=== PATIENT | female | born 1935 | race Caucasian/White ===

== ENCOUNTER 2020-03-27 12:52 | Inpatient (IN) | payer MEDICARE, BC ==
[~2020-03-27] VITALS: Ht 162.6 cm; Wt 107.9 kg
[2020-03-27 13:37] LABS: BASOPHILS % (AUTO) 0.5 % (0-1); MEAN CORPUSCULAR VOLUME 89.2 FL (78-98); MONOCYTES # (AUTO) 0.6 X10'3 (0-0.9)
[2020-03-27 13:39] LABS: EOSINOPHILS # (AUTO) 0.1 X10'3 (0-0.9); EOSINOPHILS % (AUTO) 1.8 % (0-6); HEMATOCRIT 39.9 % (35.0-45.0); HEMOGLOBIN 12.8 g/dl (12.0-16.0); LYMPHOCYTES # (AUTO) 1.6 X10'3 (1.1-4.8); LYMPHOCYTES % (AUTO) 19.9 % (21-51); MEAN CORPUSCULAR HEMOGLOBIN 28.8 PG (27.0-31.0); MEAN CORPUSCULAR HGB CONC 32.2 g/dL (33.0-36.5); MEAN PLATELET VOLUME 11.8 FL (7.4-10.4); MONOCYTES % (AUTO) 7.3 % (2-12); NEUTROPHILS # (AUTO) 5.8 X10'3 (1.8-7.7); NEUTROPHILS % (AUTO) 70.5 % (42-75); PLATELET COUNT 116 X10'3 (140-440); RED BLOOD COUNT 4.47 X10'6 (4.20-5.60); RED CELL DISTRIBUTION WIDTH 15.4 % (11.5-14.5); WHITE BLOOD COUNT 8.2 X10'3 (4.5-11.0)
[2020-03-27] MEDS: ISOPROTERENOL IV SCH ×3 (13:44→21:30)
[2020-03-27] MEDS: NS IV SCH ×3 (13:44→21:30)
--- NOTE | 2020-03-27 13:48 | NUR ---
Daughter, Celia [phone]. Pt gives verbal consent to give her information.
[2020-03-27 13:51] LABS: ALANINE AMINOTRANSFERASE 49 U/L (12-78); ALBUMIN 3.5 G/DL (3.4-5.0); ALKALINE PHOSPHATASE 69 IU/L (46-116); ANION GAP 4 (8-16); ASPARTATE AMINO TRANSFERASE 25 U/L (10-37); BILIRUBIN,TOTAL 0.3 MG/DL (0.1-1.0); BLOOD UREA NITROGEN 43 MG/DL (7-18); BUN/CREATININE RATIO 27.7 (6.6-38.0); CALCIUM 9.4 MG/DL (8.5-10.1); CHLORIDE 101 MMOL/L (99-107); CREATININE 1.55 MG/DL (0.40-0.90); GLUCOSE 200 MG/DL (70-104); POTASSIUM 5.9 MMOL/L (3.5-5.1); SODIUM 138 MMOL/L (135-145); TOTAL CARBON DIOXIDE 32.9 MMOL/L (24-32); TOTAL PROTEIN 7.1 G/DL (6.4-8.2); eGFR 32 ML/MIN
[2020-03-27 13:57] LABS: MAGNESIUM 1.8 MG/DL (1.5-2.4)
[2020-03-27 14:08] LABS: GIANT PLATELET FEW; PLATELET ESTIMATE DECREASED
[2020-03-27 14:09] LABS: LARGE PLATELETS FEW
[2020-03-27] MEDS ORDERED: potassium Cl 20 mEq SR tablet PO PRN ×2 (14:30)
[2020-03-27] MEDS ORDERED: potassium Cl 40MEQ/250ML bag 270 ML IV PRN ×2 (14:30)
[2020-03-27] MEDS ORDERED: magnesium hydroxide 30ml (MOM) UD suspension PO PRN (14:30)
[2020-03-27] MEDS ORDERED: acetaminophen 325mg tablet PO PRN (14:30)
[2020-03-27] MEDS ORDERED: potassium Cl 40MEQ/1/2NS 520ml 520 ML IV PRN ×2 (14:30)
[2020-03-27] MEDS ORDERED: morphine 4 MG/ML inj SYRINge IV PRN (14:30)
[2020-03-27] MEDS ORDERED: morphine 2 MG/ML inj. syringe IV PRN (14:30)
[2020-03-27] MEDS ORDERED: MONT10TA32 PO (14:55)
[2020-03-27] MEDS ORDERED: CARV6.2553 PO (14:55)
[2020-03-27] MEDS ORDERED: ROW500R RC (14:55)
[2020-03-27] MEDS ORDERED: LEVO112T5 PO (14:55)
[2020-03-27] MEDS ORDERED: IPRA3AMP31 IH (14:55)
[2020-03-27] MEDS ORDERED: METF-950 PO (14:55)
[2020-03-27] MEDS ORDERED: ATOR10TA70 PO (14:55)
[2020-03-27] MEDS ORDERED: GABA600T13 PO (14:55)
[2020-03-27] MEDS ORDERED: POTA10CA44 PO (14:55)
[2020-03-27] MEDS ORDERED: ASPI-611 PO (14:55)
[2020-03-27] MEDS ORDERED: OLME20TA23 PO (14:55)
[2020-03-27] MEDS ORDERED: FURO20TA4 PO (14:56)
[2020-03-27] MEDS ORDERED: ACET-1 PO (14:56)
[2020-03-27] MEDS ORDERED: LIDOcaine 1% 30ml preserv. free vial IJ ONE (18:10)
--- NOTE | 2020-03-27 18:53 | NUR ---
ROOM ASSIGNMENT 2009A,REPORT HAS BEEN CALLED BY RN GLORIA. DAUGHTER PAT AT BEDSIDE.
[2020-03-27 19:15] VITALS: BP 135/32
--- NOTE | 2020-03-27 19:30 | NUR ---
Patient in room CICU 2006. I have received report from Joy PABLO and had the opportunity to ask questions and assume patient care. pt arrived to room via gurmiryam from ED accompanied by Yuli PABLO
[2020-03-27] MEDS: normal saline 1000ml 1,000 ML IV SCH (19:39)
[2020-03-27 20:00] VITALS: BP 103/31
[2020-03-27] MEDS: ipratropium/albuterol 3ml nebule IH SCH (20:26)
[2020-03-27 20:53] LABS: OXYGEN SATURATION (MIXED VEN) 65.5 % (60-80); PO2 MIXED VENOUS (TEMP COR) 32.5 mmHg (35-46)
[2020-03-27 21:00] VITALS: BP 126/27
[2020-03-27] MEDS: K, MAG and/or Phos replacement - Verify level? MC SCH (21:15)
[2020-03-27] MEDS: mesalamine 1000mg rectal suppository RC SCH (21:18)
[2020-03-27] MEDS: atorvastatin 10mg tablet PO SCH (21:30)
[2020-03-27] MEDS: DOPamine 400mg/D5W 250ml 250 ML IV PRN (21:30)
[2020-03-27] MEDS: gabapentin 300mg capsule PO SCH (21:31)
[2020-03-27] MEDS: montelukast 10mg tablet PO SCH (21:31)
[2020-03-27] MEDS: ondansetron/PF 4mg/2ml inj IV PRN (21:55)
[2020-03-27] MEDS: levoTHYROXINE 112mcg tablet PO SCH (21:58)
[2020-03-27 22:00] VITALS: BP 123/21
[2020-03-27 23:00] VITALS: BP 99/48
[2020-03-28] VITALS (26 sets, daily range): BP systolic 77–151; BP diastolic 26–71
[2020-03-28] MEDS: ISOPROTERENOL IV SCH ×3 (00:34→09:22)
[2020-03-28] MEDS: NS IV SCH ×3 (00:34→09:22)
[2020-03-28 03:48] LABS: BASOPHILS # (AUTO) 0.1 X10'3 (0-0.2); BASOPHILS % (AUTO) 0.3 % (0-1); EOSINOPHILS % (AUTO) 0.2 % (0-6); HEMATOCRIT 37.4 % (35.0-45.0); HEMOGLOBIN 11.9 g/dl (12.0-16.0); LYMPHOCYTES # (AUTO) 1.8 X10'3 (1.1-4.8); LYMPHOCYTES % (AUTO) 11.3 % (21-51); MEAN CORPUSCULAR HEMOGLOBIN 28.5 PG (27.0-31.0); MEAN CORPUSCULAR HGB CONC 31.9 g/dL (33.0-36.5); MEAN CORPUSCULAR VOLUME 89.2 FL (78-98); MEAN PLATELET VOLUME 12.3 FL (7.4-10.4); MONOCYTES # (AUTO) 1.5 X10'3 (0-0.9); MONOCYTES % (AUTO) 9.6 % (2-12); NEUTROPHILS # (AUTO) 12.5 X10'3 (1.8-7.7); NEUTROPHILS % (AUTO) 78.6 % (42-75); PLATELET COUNT 124 X10'3 (140-440); RED BLOOD COUNT 4.19 X10'6 (4.20-5.60); RED CELL DISTRIBUTION WIDTH 15.6 % (11.5-14.5)
[2020-03-28 04:03] LABS: ALBUMIN 3.3 G/DL (3.4-5.0); ANION GAP 6 (8-16); BLOOD UREA NITROGEN 44 MG/DL (7-18); BUN/CREATININE RATIO 22.9 (6.6-38.0); CALCIUM 8.1 MG/DL (8.5-10.1); CHLORIDE 102 MMOL/L (99-107); CREATININE 1.92 MG/DL (0.40-0.90); GLUCOSE 252 MG/DL (70-104); MAGNESIUM 1.5 MG/DL (1.5-2.4); POTASSIUM 5.7 MMOL/L (3.5-5.1); SODIUM 137 MMOL/L (135-145); TOTAL CARBON DIOXIDE 28.7 MMOL/L (24-32); eGFR 25 ML/MIN
[2020-03-28] MEDS: ondansetron/PF 4mg/2ml inj IV PRN (04:55)
[2020-03-28 05:16] LABS: LARGE PLATELETS FEW; PLATELET ESTIMATE DECREASED
[2020-03-28 05:17] LABS: STOMATOCYTES 1+
[2020-03-28] MEDS: DOPamine 400mg/D5W 250ml 250 ML IV PRN ×3 (06:01→15:14)
--- NOTE | 2020-03-28 06:49 | NUR ---
Problems reprioritized. Patient report given, questions answered & plan of care reviewed with Joy PABLO.
[2020-03-28] MEDS: normal saline 1000ml 1,000 ML IV SCH ×4 (06:55→20:53)
[2020-03-28] MEDS: ipratropium/albuterol 3ml nebule IH SCH ×2 (07:53→20:45)
[2020-03-28] MEDS: mesalamine 1000mg rectal suppository RC SCH ×2 (08:00→20:00)
[2020-03-28] MEDS: K, MAG and/or Phos replacement - Verify level? MC SCH (08:00)
--- NOTE | 2020-03-28 08:02 | NUR ---
I have reviewed and agree with all medications administered and interventions performed by [facility] Student(Linnette Guerrero) Addendum: 03/28/20 at 0803 by Claribel Saucedo RT Amended: Links added.
[2020-03-28] MEDS ORDERED: normal saline 1000ml 1,000 ML IV ONE (08:55)
[2020-03-28] MEDS ORDERED: normal saline 1000ml 1,000 ML IV SCH (09:10)
[2020-03-28] MEDS: aspirin 81mg tablet.DR PO SCH (09:22)
[2020-03-28] MEDS: gabapentin 300mg capsule PO SCH (09:23)
[2020-03-28] MEDS ORDERED: MESSAGE TO PHARMACY PO ONE (09:55)
[2020-03-28] MEDS ORDERED: glucagon, human recombinant 1mg kit SUBCUT PRN (09:55)
[2020-03-28] MEDS ORDERED: dextrose 50%-water 50ml dispensing syringe IV PRN ×2 (09:55)
[2020-03-28] MEDS ORDERED: dextrose ORAL solution 15 GM/59 ML bottle PO PRN ×2 (09:55)
[2020-03-28] MEDS: insulin Lispro (HumaLOG) vial - multi-dose SQ SCH ×2 (13:23→21:20)
[2020-03-28 14:21] LABS: CLARITY,URINE CLOUDY (Clear); COLOR,URINE YELLOW (Yellow); GLUCOSE, URINE NEGATIVE (Neg); KETONES,URINE NEGATIVE (Neg); LEUKOCYTE ESTERASE ,URINE NEGATIVE (Neg); NITRITES, URINE NEGATIVE (Neg); OCCULT BLOOD,URINE LARGE (Neg); PROTEIN,URINE 100 mg/dl (Neg)
[2020-03-28 14:31] LABS: UA COLLECTION TYPE NON-SPECIFIED
[2020-03-28 14:36] LABS: MUCUS STRANDS FEW /LPF (Neg); SQUAMOUS EPITHELIAL CELL,UR MODERATE /LPF (FEW); TRANSITIONAL EPI CELLS,URINE MODERATE /HPF
[2020-03-28 14:38] LABS: RENAL CELLS, URINE MODERATE /HPF
[2020-03-28 14:40] LABS: BACTERIA,URINE 3+ /HPF (Neg); CAL OXALATE CRYSTALS 1+ /HPF (NEGATIVE); RBC,URINE 50-100 /HPF (0-2)
[2020-03-28] MEDS ORDERED: ceFAZolin 2gm in dextrose, iso 50 ML IV ONE (15:00)
[2020-03-28] MEDS ORDERED: LIDOcaine 1% W/epiNEPHrine 1:100,000 20ml vial ONE (15:01)
[2020-03-28] MEDS ORDERED: ceFAZolin 1000mg inj ONE (15:01)
[2020-03-28] MEDS ORDERED: midazolam 2 mg/2 ml injection ONE (15:01)
[2020-03-28] MEDS ORDERED: fentaNYL/PF 50MCG/1 ML 2ML syringe ONE (15:01)
[2020-03-28] MEDS ORDERED: phenylephrine 10mg/ml inj. ONE (16:42)
--- NOTE | 2020-03-28 16:50 | NUR ---
PT left for earth science laboratory technician at 1530 returned at 1650. Report received. RN reported that PT had a run of VF/SVT as they were moving her from earth science laboratory technician table to [facility]. PT is on a non rebreather, HR is in the 120's to 140's.100% paced. BP is high and Dopamine is running at 20mcgs. Titrated down and eventually off. VS stabilizing. PT is not waking but is moving a little. Urine OP looks good. Will continue to monitor.
[2020-03-28 17:38] LABS: ABG BASE EXCESS -7.2 mmol/L (-2.0-2.0); ABG PCO2 (T) 109.7 mmHg (32.0-45.0); FCOHb 0.6 % (0.0-3.9); FLOW 15 L/min; FMetHb 0.4 % (0.0-1.5); PATIENT TEMPERATURE 35.7; TOTAL HEMOGLOBIN 13.1 G/dl (12.0-16.0)
[2020-03-28] MEDS ORDERED: NORepinephrine 8mg/ 250ml NS 250 ML IV ONE (18:05)
[2020-03-28] MEDS: NORepinephrine 8mg/ 250ml NS 250 ML IV SCH (18:17)
--- NOTE | 2020-03-28 18:30 | NUR ---
Patient in room CICU 2006. I have received report from CHERYL PABLO and had the opportunity to ask questions and assume patient care.
[2020-03-28 18:47] LABS: HEMOGLOBIN A1C 7.4 % (4.5-6.2)
[2020-03-28 19:20] LABS: ABG BASE EXCESS -7.7 mmol/L (-2.0-2.0); ABG HCO3 23.5 mmol/L (22.0-26.0); ABG OXYGEN SATURATION 94.2 % (94-97); ABG PCO2 (T) 75.2 mmHg (32.0-45.0); ABG PO2 (T) 70.3 mmHg (75.0-100.0); FCOHb 0.7 % (0.0-3.9); FMetHb 0.3 % (0.0-1.5); FO2Hb 93.3 % (94-97); TOTAL HEMOGLOBIN 13.1 G/dl (12.0-16.0)
[2020-03-28 20:00] LABS: ALBUMIN 2.9 G/DL (3.4-5.0); ANION GAP 4 (8-16); BLOOD UREA NITROGEN 44 MG/DL (7-18); CALCIUM 7.7 MG/DL (8.5-10.1); CHLORIDE 103 MMOL/L (99-107); GLUCOSE 200 MG/DL (70-104); SODIUM 135 MMOL/L (135-145); TOTAL CARBON DIOXIDE 28.2 MMOL/L (24-32); eGFR 24 ML/MIN
[2020-03-28 20:04] LABS: POTASSIUM 7.3 MMOL/L (3.5-5.1)
[2020-03-28] MEDS ORDERED: furosemide 40mg/4ml inj IV ONE (20:10)
[2020-03-28] MEDS ORDERED: sodium bicarbonate (8.4%) 1 mEq/ml syringe IV ONE (20:10)
[2020-03-28] MEDS ORDERED: dextrose 50%-water 50ml dispensing syringe IV ONE (20:10)
[2020-03-28] MEDS ORDERED: insulin regular, human 10 units/0.1 ml syringe IV ONE (20:10)
[2020-03-28] MEDS ORDERED: calcium chloride 100 MG/1 ML inj IV ONE (20:10)
[2020-03-28] MEDS ORDERED: albuterol 2.5 MG/3 ML nebule NEB ONE ×2 (20:20→23:00)
[2020-03-28] MEDS: NYSTATIN CREAM - 30GM TUBE TP SCH (20:52)
[2020-03-28] MEDS: levoTHYROXINE 112mcg tablet PO SCH (21:00)
[2020-03-28] MEDS: montelukast 10mg tablet PO SCH (21:00)
[2020-03-28] MEDS: atorvastatin 10mg tablet PO SCH (21:00)
[2020-03-28] MEDS: insulin glargine (Lantus) pen - multi-dose SQ SCH (21:21)
[2020-03-28 22:29] LABS: ABG BASE EXCESS -4.8 mmol/L (-2.0-2.0); ABG HCO3 24.9 mmol/L (22.0-26.0); ABG OXYGEN SATURATION 94.2 % (94-97); ABG PCO2 (T) 67.8 mmHg (32.0-45.0); ABG PO2 (T) 69.6 mmHg (75.0-100.0); FCOHb 0.6 % (0.0-3.9); FMetHb 0.1 % (0.0-1.5); FO2Hb 93.5 % (94-97); PATIENT TEMPERATURE 36.3; RESPIRATORY RATE 20 b/min; TOTAL HEMOGLOBIN 12.2 G/dl (12.0-16.0)
[2020-03-28 22:44] LABS: ALBUMIN 2.7 G/DL (3.4-5.0); ANION GAP 3 (8-16); BLOOD UREA NITROGEN 42 MG/DL (7-18); BUN/CREATININE RATIO 23.6 (6.6-38.0); CALCIUM 8.3 MG/DL (8.5-10.1); CHLORIDE 104 MMOL/L (99-107); CREATININE 1.78 MG/DL (0.40-0.90); GLUCOSE 181 MG/DL (70-104); SODIUM 136 MMOL/L (135-145); TOTAL CARBON DIOXIDE 29.5 MMOL/L (24-32); eGFR 27 ML/MIN
[2020-03-28 22:47] LABS: POTASSIUM 6.4 MMOL/L (3.5-5.1)
[2020-03-28] MEDS ORDERED: methylPREDNISolone sod succ 125mg/2ml vial IV ONE (23:05)
[2020-03-29] VITALS (24 sets, daily range): BP systolic 100–136; BP diastolic 41–65
[2020-03-29] MEDS: insulin Lispro (HumaLOG) vial - multi-dose SQ SCH ×5 (01:18→18:40)
[2020-03-29 03:14] LABS: ABG BASE EXCESS -4.4 mmol/L (-2.0-2.0); ABG OXYGEN SATURATION 95.1 % (94-97); ABG PCO2 (T) 58.5 mmHg (32.0-45.0); ABG PO2 (T) 74.9 mmHg (75.0-100.0); FCOHb 0.8 % (0.0-3.9); FMetHb 0.2 % (0.0-1.5); FO2Hb 94.1 % (94-97); PATIENT TEMPERATURE 36.6; RESPIRATORY RATE 22 b/min; TOTAL HEMOGLOBIN 12.5 G/dl (12.0-16.0)
[2020-03-29 03:22] LABS: BASOPHILS % (AUTO) 0.2 % (0-1); EOSINOPHILS % (AUTO) 0 % (0-6); HEMATOCRIT 36.3 % (35.0-45.0); HEMOGLOBIN 11.5 g/dl (12.0-16.0); LYMPHOCYTES # (AUTO) 0.6 X10'3 (1.1-4.8); LYMPHOCYTES % (AUTO) 4.5 % (21-51); MEAN CORPUSCULAR HEMOGLOBIN 28.4 PG (27.0-31.0); MEAN CORPUSCULAR HGB CONC 31.7 g/dL (33.0-36.5); MEAN CORPUSCULAR VOLUME 89.7 FL (78-98); MEAN PLATELET VOLUME 11.7 FL (7.4-10.4); MONOCYTES # (AUTO) 0.5 X10'3 (0-0.9); MONOCYTES % (AUTO) 3.8 % (2-12); NEUTROPHILS % (AUTO) 91.5 % (42-75); PLATELET COUNT 100 X10'3 (140-440); RED BLOOD COUNT 4.04 X10'6 (4.20-5.60); RED CELL DISTRIBUTION WIDTH 15.1 % (11.5-14.5); WHITE BLOOD COUNT 13.1 X10'3 (4.5-11.0)
[2020-03-29 03:31] LABS: ALANINE AMINOTRANSFERASE 35 U/L (12-78); ALBUMIN 2.8 G/DL (3.4-5.0); ALBUMIN/GLOBULIN RATIO 0.8 (1.1-1.5); ALKALINE PHOSPHATASE 55 IU/L (46-116); ANION GAP 6 (8-16); ASPARTATE AMINO TRANSFERASE 19 U/L (10-37); BILIRUBIN,TOTAL 0.8 MG/DL (0.1-1.0); BLOOD UREA NITROGEN 38 MG/DL (7-18); BUN/CREATININE RATIO 26.2 (6.6-38.0); CALCIUM 8.5 MG/DL (8.5-10.1); CHLORIDE 104 MMOL/L (99-107); CREATININE 1.45 MG/DL (0.40-0.90); GLUCOSE 213 MG/DL (70-104); MAGNESIUM 1.4 MG/DL (1.5-2.4); PHOSPHORUS 3.4 MG/DL (2.3-4.5); SODIUM 138 MMOL/L (135-145); TOTAL CARBON DIOXIDE 28.3 MMOL/L (24-32); TOTAL PROTEIN 6.5 G/DL (6.4-8.2); eGFR 34 ML/MIN
[2020-03-29 03:36] LABS: POTASSIUM 6.2 MMOL/L (3.5-5.1)
[2020-03-29] MEDS: NORepinephrine 8mg/ 250ml NS 250 ML IV SCH ×2 (06:06→17:47)
--- NOTE | 2020-03-29 06:45 | NUR ---
Problems reprioritized. Patient report given, questions answered & plan of care reviewed with NICK PABLO.
[2020-03-29] MEDS: K, MAG and/or Phos replacement - Verify level? MC SCH (07:51)
[2020-03-29] MEDS: mesalamine 1000mg rectal suppository RC SCH (08:00)
[2020-03-29] MEDS: gabapentin 300mg capsule PO SCH (08:14)
[2020-03-29] MEDS: aspirin 81mg tablet.DR PO SCH (08:14)
[2020-03-29] MEDS: NYSTATIN CREAM - 30GM TUBE TP SCH ×2 (08:51→21:26)
[2020-03-29] MEDS: ipratropium/albuterol 3ml nebule IH SCH ×2 (08:58→19:46)
[2020-03-29] MEDS: acetaminophen 325mg tablet PO PRN ×2 (09:35→18:14)
--- NOTE | 2020-03-29 11:08 | NUR ---
DM consult: Pt with A1c 7.4%, DM education not warranted at this time given well controlled for geriatric age. Will continue to follow. Addendum: 03/29/20 at [address] Amended: Links added.
[2020-03-29] MEDS ORDERED: mesalamine 1000mg rectal suppository RC SCH (11:36)
[2020-03-29] MEDS ORDERED: UMEC1DIS IH (12:45)
[2020-03-29] MEDS ORDERED: albuterol 2.5 MG/3 ML nebule NEB SCH (14:00)
[2020-03-29] MEDS ORDERED: HYDROcodone/acetaminophen 5mg/325mg tablet PO PRN (14:50)
[2020-03-29] MEDS ORDERED: magnesium 2GM in 50ml NS 50 ML IV PRN (15:45)
[2020-03-29] MEDS ORDERED: magnesium 4gm in 100ml NS 100 ML IV PRN (15:45)
[2020-03-29] MEDS ORDERED: magnesium 2GM in 50ml NS 50 ML IV ONE (15:45)
[2020-03-29] MEDS ORDERED: magnesium Cl slow-release 64mg tablet PO PRN (15:45)
[2020-03-29] MEDS: ceFAZolin/D5W- 1GM premix 50 ML IV SCH ×2 (16:03→23:49)
[2020-03-29] MEDS ORDERED: sodium bicarbonate (8.4%) 1 mEq/ml syringe IV ONE (17:05)
[2020-03-29] MEDS ORDERED: dextrose 50%-water 50ml dispensing syringe IV ONE (17:05)
[2020-03-29] MEDS ORDERED: CALCIUM GLUC 1gm/50ml NACL,iso 50 ML IV SCH (17:05)
[2020-03-29] MEDS ORDERED: sodium polystyrene sulfonate 15gm/60ml oral suspension PO ONE (17:05)
[2020-03-29] MEDS ORDERED: insulin regular, human 10 units/0.1 ml syringe IV ONE (17:05)
[2020-03-29] MEDS ORDERED: calcium chloride 100 MG/1 ML inj IV ONE (17:05)
--- NOTE | 2020-03-29 18:30 | NUR ---
Patient in room CICU 2006. I have received report from NICK PABLO and had the opportunity to ask questions and assume patient care.
[2020-03-29 18:38] LABS: ALBUMIN 2.7 G/DL (3.4-5.0); ANION GAP 3 (8-16); BLOOD UREA NITROGEN 31 MG/DL (7-18); CALCIUM 8.6 MG/DL (8.5-10.1); CHLORIDE 105 MMOL/L (99-107); CREATININE 1.07 MG/DL (0.40-0.90); GLUCOSE 132 MG/DL (70-104); POTASSIUM 5.5 MMOL/L (3.5-5.1); SODIUM 139 MMOL/L (135-145); TOTAL CARBON DIOXIDE 30.6 MMOL/L (24-32); eGFR 49 ML/MIN
[2020-03-29] MEDS: budesonide 0.5mg/2ml UD nebule IH SCH (19:46)
[2020-03-29] MEDS: atorvastatin 10mg tablet PO SCH (21:24)
[2020-03-29] MEDS: normal saline 1000ml 1,000 ML IV SCH (21:24)
[2020-03-29] MEDS: metoprolol tartrate 25mg tablet PO SCH (21:25)
[2020-03-29] MEDS: montelukast 10mg tablet PO SCH (21:26)
[2020-03-29] MEDS: levoTHYROXINE 112mcg tablet PO SCH (21:26)
[2020-03-29] MEDS: insulin glargine (Lantus) pen - multi-dose SQ SCH (21:29)
[2020-03-30] VITALS (18 sets, daily range): BP systolic 108–143; BP diastolic 47–69
[2020-03-30] MEDS: insulin Lispro (HumaLOG) vial - multi-dose SQ SCH ×4 (02:00→20:00)
[2020-03-30 02:38] LABS: BASOPHILS % (AUTO) 0.1 % (0-1); EOSINOPHILS % (AUTO) 0.1 % (0-6); HEMATOCRIT 32.5 % (35.0-45.0); HEMOGLOBIN 10.6 g/dl (12.0-16.0); LYMPHOCYTES # (AUTO) 0.6 X10'3 (1.1-4.8); LYMPHOCYTES % (AUTO) 7.2 % (21-51); MEAN CORPUSCULAR HEMOGLOBIN 28.9 PG (27.0-31.0); MEAN CORPUSCULAR HGB CONC 32.5 g/dL (33.0-36.5); MEAN PLATELET VOLUME 11.3 FL (7.4-10.4); MONOCYTES # (AUTO) 0.8 X10'3 (0-0.9); MONOCYTES % (AUTO) 8.6 % (2-12); NEUTROPHILS # (AUTO) 7.4 X10'3 (1.8-7.7); PLATELET COUNT 80 X10'3 (140-440); RED BLOOD COUNT 3.65 X10'6 (4.20-5.60); RED CELL DISTRIBUTION WIDTH 15.2 % (11.5-14.5); WHITE BLOOD COUNT 8.9 X10'3 (4.5-11.0)
[2020-03-30 02:49] LABS: ALBUMIN 2.6 G/DL (3.4-5.0); ANION GAP 4 (8-16); BLOOD UREA NITROGEN 29 MG/DL (7-18); BUN/CREATININE RATIO 29.9 (6.6-38.0); CALCIUM 8.6 MG/DL (8.5-10.1); CHLORIDE 105 MMOL/L (99-107); CREATININE 0.97 MG/DL (0.40-0.90); GLUCOSE 166 MG/DL (70-104); POTASSIUM 5.3 MMOL/L (3.5-5.1); PREALBUMIN 15.3 MG/DL (19-36); SODIUM 138 MMOL/L (135-145); eGFR 55 ML/MIN
[2020-03-30] MEDS: ondansetron/PF 4mg/2ml inj IV PRN (04:14)
[2020-03-30] MEDS: HYDROcodone/acetaminophen 10/325mg tab PO PRN ×2 (04:15→16:28)
--- NOTE | 2020-03-30 06:31 | NUR ---
Problems reprioritized. Patient report given, questions answered & plan of care reviewed with Cesar PABLO.
[2020-03-30] MEDS: metoprolol tartrate 25mg tablet PO SCH ×2 (07:55→20:26)
[2020-03-30] MEDS: gabapentin 300mg capsule PO SCH (07:55)
[2020-03-30] MEDS: NYSTATIN CREAM - 30GM TUBE TP SCH ×2 (07:56→20:00)
[2020-03-30] MEDS: ceFAZolin/D5W- 1GM premix 50 ML IV SCH (07:56)
[2020-03-30] MEDS: aspirin 81mg tablet.DR PO SCH (07:56)
[2020-03-30] MEDS: K, MAG and/or Phos replacement - Verify level? MC SCH (08:00)
[2020-03-30] MEDS: ipratropium/albuterol 3ml nebule IH SCH ×2 (08:01→20:02)
[2020-03-30] MEDS: budesonide 0.5mg/2ml UD nebule IH SCH ×2 (08:01→20:02)
[2020-03-30] MEDS: mesalamine 1000mg rectal suppository RC SCH ×2 (09:03→20:26)
--- NOTE | 2020-03-30 14:39 | NUR ---
lauren and PUSHPA discontinue per verbal order by chemotherapist Dr. Rodriguez
--- NOTE | 2020-03-30 16:00 | NUR ---
SBAR report given to government program managernesha ace reviewed, questions answered. Addendum: 03/30/20 at 1602 by Cesar Pena RN patient transferred at 1600, vitals wnl, in no distress, connected to telemetry during transfer.
[2020-03-30] MEDS: cefepime 1GM/NS 100 ML IVPB IV SCH (17:30)
--- NOTE | 2020-03-30 18:47 | NUR ---
Patient in room PCU 3027. I have received report from Mahsa PABLO and had the opportunity to ask questions and assume patient care.
[2020-03-30] MEDS: atorvastatin 10mg tablet PO SCH (20:25)
[2020-03-30] MEDS: montelukast 10mg tablet PO SCH (20:25)
[2020-03-30] MEDS: levoTHYROXINE 112mcg tablet PO SCH (20:25)
[2020-03-30] MEDS: insulin glargine (Lantus) pen - multi-dose SQ SCH (20:48)
[2020-03-31 02:00] VITALS: BP 129/49
[2020-03-31 06:00] VITALS: BP 168/84
--- NOTE | 2020-03-31 06:27 | NUR ---
Problems reprioritized. Patient report given, questions answered & plan of care reviewed with Sharon PABLO.
--- NOTE | 2020-03-31 06:43 | NUR ---
Patient in room PCU 3027. I have received report from Iván PABLO and had the opportunity to ask questions and assume patient care.
[2020-03-31] MEDS: ipratropium/albuterol 3ml nebule IH SCH (07:07)
[2020-03-31] MEDS: budesonide 0.5mg/2ml UD nebule IH SCH (07:07)
--- NOTE | 2020-03-31 07:48 | NUR ---
Paged Dr. Almendarez regarding labs. PAGER ID: [phone] MESSAGE: [phone] Davi Rosas. Do we want to order labs? Thank you. [facility] [phone]
[2020-03-31] MEDS: cefepime 1GM/NS 100 ML IVPB IV SCH ×2 (07:50→19:47)
[2020-03-31] MEDS: gabapentin 300mg capsule PO SCH (07:50)
[2020-03-31] MEDS: aspirin 81mg tablet.DR PO SCH (07:50)
[2020-03-31] MEDS: metoprolol tartrate 25mg tablet PO SCH ×2 (07:51→20:00)
[2020-03-31] MEDS: K, MAG and/or Phos replacement - Verify level? MC SCH (08:00)
[2020-03-31] MEDS: mesalamine 1000mg rectal suppository RC SCH ×2 (08:00→20:00)
[2020-03-31] MEDS: NYSTATIN CREAM - 30GM TUBE TP SCH ×2 (08:00→20:00)
[2020-03-31] MEDS: insulin Lispro (HumaLOG) vial - multi-dose SQ SCH ×3 (08:56→22:13)
[2020-03-31 11:00] VITALS: BP 148/78
[2020-03-31 12:18] LABS: BASOPHILS % (AUTO) 0.4 % (0-1); EOSINOPHILS % (AUTO) 0.3 % (0-6); HEMATOCRIT 33.6 % (35.0-45.0); LYMPHOCYTES # (AUTO) 0.7 X10'3 (1.1-4.8); LYMPHOCYTES % (AUTO) 7.3 % (21-51); MEAN CORPUSCULAR HEMOGLOBIN 28.9 PG (27.0-31.0); MEAN CORPUSCULAR HGB CONC 32.8 g/dL (33.0-36.5); MEAN CORPUSCULAR VOLUME 88.2 FL (78-98); MEAN PLATELET VOLUME 11.8 FL (7.4-10.4); MONOCYTES % (AUTO) 10.4 % (2-12); NEUTROPHILS # (AUTO) 7.8 X10'3 (1.8-7.7); NEUTROPHILS % (AUTO) 81.6 % (42-75); PLATELET COUNT 96 X10'3 (140-440); RED BLOOD COUNT 3.81 X10'6 (4.20-5.60); RED CELL DISTRIBUTION WIDTH 14.8 % (11.5-14.5); WHITE BLOOD COUNT 9.5 X10'3 (4.5-11.0)
[2020-03-31 12:26] LABS: ALBUMIN 2.6 G/DL (3.4-5.0); ANION GAP 2 (8-16); BLOOD UREA NITROGEN 25 MG/DL (7-18); BUN/CREATININE RATIO 32.1 (6.6-38.0); CALCIUM 8.9 MG/DL (8.5-10.1); CHLORIDE 103 MMOL/L (99-107); CREATININE 0.78 MG/DL (0.40-0.90); GLUCOSE 144 MG/DL (70-104); MAGNESIUM 1.8 MG/DL (1.5-2.4); PHOSPHORUS 1.9 MG/DL (2.3-4.5); SODIUM 138 MMOL/L (135-145); TOTAL CARBON DIOXIDE 32.9 MMOL/L (24-32); eGFR 71 ML/MIN
--- NOTE | 2020-03-31 13:18 | NUR ---
Paged Dr. Almendarez regarding phos replacement. PAGER ID: [phone] MESSAGE: [phone] Alison Tomlinson. Phos was 1.9. I don't have anything ordered to replace it. What would you like to replace it with? Thank you. JANET Herrera RN [phone].
[2020-03-31] MEDS ORDERED: sodium phosphate inj. 30 MMOL in dextrose 5%-water 250 ML IV ONE (13:25)
[2020-03-31] MEDS ORDERED: methylPREDNISolone sod succ 125mg/2ml vial IV ONE (13:25)
[2020-03-31] MEDS: methylPREDNISolone sod succ 125mg/2ml vial IV SCH ×2 (14:00→20:01)
[2020-03-31] MEDS: azithromycin 250mg tablet PO SCH (14:47)
[2020-03-31 15:00] VITALS: BP 168/78
--- NOTE | 2020-03-31 15:26 | NUR ---
Paged Dr. Almendarez regarding patients nausea. PAGER ID: [phone] MESSAGE: [phone] Alison Tomlinson. Her Zofran fell off can I please reorder? She has nausea and is requesting Zofran. Thank you. [facility] [phone]
[2020-03-31] MEDS: ipratropium/albuterol 3ml nebule NEB SCH ×3 (16:23→23:10)
[2020-03-31] MEDS ORDERED: ondansetron/PF 4mg/2ml inj IV PRN (17:30)
[2020-03-31 18:00] VITALS: BP 151/70
--- NOTE | 2020-03-31 18:09 | NUR ---
Problems reprioritized. Patient report given, questions answered & plan of care reviewed with Iván RN. Patient stable at transfer of care.
--- NOTE | 2020-03-31 18:14 | NUR ---
Patient in room PCU 3027. I have received report from Sharon PABLO and had the opportunity to ask questions and assume patient care.
[2020-03-31] MEDS: lactobacillus rhamnosus 10,000 MMU CELLS/CAPSULE PO SCH (19:47)
[2020-03-31] MEDS: montelukast 10mg tablet PO SCH (20:30)
[2020-03-31] MEDS: levoTHYROXINE 112mcg tablet PO SCH (20:30)
[2020-03-31] MEDS: HYDROcodone/acetaminophen 10/325mg tab PO PRN (20:30)
[2020-03-31] MEDS: atorvastatin 10mg tablet PO SCH (20:30)
[2020-03-31 22:00] VITALS: BP 137/64
[2020-03-31] MEDS: insulin glargine (Lantus) pen - multi-dose SQ SCH (22:11)
[2020-04-01] VITALS (7 sets, daily range): BP systolic 129–176; BP diastolic 44–74
[2020-04-01] MEDS: methylPREDNISolone sod succ 125mg/2ml vial IV SCH ×4 (02:56→20:43)
[2020-04-01] MEDS: ipratropium/albuterol 3ml nebule NEB SCH ×6 (02:57→22:51)
--- NOTE | 2020-04-01 06:25 | NUR ---
Problems reprioritized. Patient report given, questions answered & plan of care reviewed with ROSA PABLO.
--- NOTE | 2020-04-01 06:31 | NUR ---
Patient in room PCU 3027. I have received report from noa ace and had the opportunity to ask questions and assume patient care.
[2020-04-01] MEDS: mesalamine 1000mg rectal suppository RC SCH ×2 (08:00→22:35)
[2020-04-01] MEDS: K, MAG and/or Phos replacement - Verify level? MC SCH (08:00)
[2020-04-01] MEDS: aspirin 81mg tablet.DR PO SCH (09:00)
[2020-04-01] MEDS: cefepime 1GM/NS 100 ML IVPB IV SCH ×2 (09:00→20:46)
[2020-04-01] MEDS: metoprolol tartrate 25mg tablet PO SCH ×2 (09:01→20:43)
[2020-04-01] MEDS: azithromycin 250mg tablet PO SCH (09:01)
[2020-04-01] MEDS: gabapentin 300mg capsule PO SCH (09:01)
[2020-04-01] MEDS: lactobacillus rhamnosus 10,000 MMU CELLS/CAPSULE PO SCH ×2 (09:01→20:43)
[2020-04-01] MEDS: insulin Lispro (HumaLOG) vial - multi-dose SQ SCH ×3 (09:26→20:56)
--- NOTE | 2020-04-01 10:30 | NUR ---
PAGED DR BEATRICE VARGHESE PAGER ID: [phone] MESSAGE: MEREDITH JOVEL. NO LABS TODAY. PT INCREASED GENERALIZED EDEMA AND INCREASED FATIGUE PER DAUGTER. [facility] [phone]
--- NOTE | 2020-04-01 10:46 | NUR ---
Initial: Pt admit DX COPD exacerbation, third degree heart block s/p pacemaker, JOSE almost resolved, hypothyroidism, and T2DM per MD note. PO ~50% avg carb controlled meals not meeting needs. SCOTTY recommends Glucerna TIDWM for additional kcals/protein since may tolerate liquid kcals better at this time given DX; MD notified. LBM 03/31. Phos 1.9 yesterday s/p one time NaPhos; SCOTTY d/w RN regarding recheck this AM if MD agreeable. Will continue to monitor. Rec: 1. continue carb controlled diet; encourage PO 2. Glucerna TIDWM pending verification in EMR 3. routine bowel care 4. weekly wts Addendum: 04/01/20 at [address] Amended: Links added.
[2020-04-01 11:24] LABS: BASOPHILS % (AUTO) 0.2 % (0-1); EOSINOPHILS % (AUTO) 0 % (0-6); HEMOGLOBIN 10.9 g/dl (12.0-16.0); LYMPHOCYTES # (AUTO) 0.4 X10'3 (1.1-4.8); LYMPHOCYTES % (AUTO) 4.4 % (21-51); MEAN CORPUSCULAR HEMOGLOBIN 28.8 PG (27.0-31.0); MEAN CORPUSCULAR VOLUME 87.3 FL (78-98); MEAN PLATELET VOLUME 11.3 FL (7.4-10.4); MONOCYTES # (AUTO) 0.5 X10'3 (0-0.9); MONOCYTES % (AUTO) 5.5 % (2-12); NEUTROPHILS # (AUTO) 7.7 X10'3 (1.8-7.7); NEUTROPHILS % (AUTO) 89.9 % (42-75); PLATELET COUNT 105 X10'3 (140-440); RED BLOOD COUNT 3.77 X10'6 (4.20-5.60); RED CELL DISTRIBUTION WIDTH 15.2 % (11.5-14.5); WHITE BLOOD COUNT 8.6 X10'3 (4.5-11.0)
[2020-04-01 11:34] LABS: ALANINE AMINOTRANSFERASE 30 U/L (12-78); ALBUMIN 2.4 G/DL (3.4-5.0); ALBUMIN/GLOBULIN RATIO 0.7 (1.1-1.5); ALKALINE PHOSPHATASE 72 IU/L (46-116); ANION GAP 5 (8-16); ASPARTATE AMINO TRANSFERASE 16 U/L (10-37); BILIRUBIN,TOTAL 0.6 MG/DL (0.1-1.0); BLOOD UREA NITROGEN 27 MG/DL (7-18); BUN/CREATININE RATIO 32.9 (6.6-38.0); CALCIUM 8.8 MG/DL (8.5-10.1); CHLORIDE 101 MMOL/L (99-107); CREATININE 0.82 MG/DL (0.40-0.90); GLUCOSE 231 MG/DL (70-104); POTASSIUM 4.7 MMOL/L (3.5-5.1); SODIUM 138 MMOL/L (135-145); TOTAL CARBON DIOXIDE 32.2 MMOL/L (24-32); eGFR 67 ML/MIN
[2020-04-01 11:41] LABS: LARGE PLATELETS FEW; PLATELET ESTIMATE DECREASED
[2020-04-01 12:31] LABS: PHOSPHORUS 2.5 MG/DL (2.3-4.5)
[2020-04-01] MEDS: NYSTATIN CREAM - 30GM TUBE TP SCH ×2 (13:57→20:57)
[2020-04-01] MEDS: furosemide 40mg/4ml inj IV SCH ×2 (14:14→20:41)
[2020-04-01] MEDS: acetaminophen 325mg tablet PO PRN ×2 (16:12→22:42)
[2020-04-01] MEDS ORDERED: ipratropium/albuterol 3ml nebule NEB PRN (16:15)
--- NOTE | 2020-04-01 18:39 | NUR ---
Problems reprioritized. Patient report given, questions answered & plan of care reviewed with leelee ace.
[2020-04-01] MEDS: atorvastatin 10mg tablet PO SCH (21:06)
[2020-04-01] MEDS: montelukast 10mg tablet PO SCH (21:06)
[2020-04-01] MEDS: levoTHYROXINE 112mcg tablet PO SCH (21:06)
[2020-04-01] MEDS: insulin glargine (Lantus) pen - multi-dose SQ SCH (21:21)
[2020-04-02 02:00] VITALS: BP 131/60
[2020-04-02] MEDS: methylPREDNISolone sod succ 125mg/2ml vial IV SCH ×3 (02:05→14:00)
[2020-04-02 06:09] LABS: BASOPHILS % (AUTO) 0.1 % (0-1); EOSINOPHILS % (AUTO) 0 % (0-6); HEMATOCRIT 34.5 % (35.0-45.0); HEMOGLOBIN 11.3 g/dl (12.0-16.0); LYMPHOCYTES # (AUTO) 0.6 X10'3 (1.1-4.8); LYMPHOCYTES % (AUTO) 6.2 % (21-51); MEAN CORPUSCULAR HEMOGLOBIN 28.5 PG (27.0-31.0); MEAN CORPUSCULAR HGB CONC 32.7 g/dL (33.0-36.5); MEAN CORPUSCULAR VOLUME 87.1 FL (78-98); MEAN PLATELET VOLUME 11.1 FL (7.4-10.4); MONOCYTES # (AUTO) 0.5 X10'3 (0-0.9); MONOCYTES % (AUTO) 4.9 % (2-12); NEUTROPHILS # (AUTO) 8.9 X10'3 (1.8-7.7); NEUTROPHILS % (AUTO) 88.8 % (42-75); PLATELET COUNT 125 X10'3 (140-440); RED BLOOD COUNT 3.96 X10'6 (4.20-5.60); RED CELL DISTRIBUTION WIDTH 15.2 % (11.5-14.5)
[2020-04-02 06:22] LABS: ALANINE AMINOTRANSFERASE 31 U/L (12-78); ALBUMIN 2.6 G/DL (3.4-5.0); ALBUMIN/GLOBULIN RATIO 0.7 (1.1-1.5); ALKALINE PHOSPHATASE 67 IU/L (46-116); ANION GAP 0 (8-16); ASPARTATE AMINO TRANSFERASE 12 U/L (10-37); BILIRUBIN,TOTAL 0.6 MG/DL (0.1-1.0); BLOOD UREA NITROGEN 31 MG/DL (7-18); CHLORIDE 99 MMOL/L (99-107); CREATININE 0.94 MG/DL (0.40-0.90); GLUCOSE 180 MG/DL (70-104); MAGNESIUM 1.8 MG/DL (1.5-2.4); PHOSPHORUS 3.8 MG/DL (2.3-4.5); POTASSIUM 4.5 MMOL/L (3.5-5.1); SODIUM 136 MMOL/L (135-145); TOTAL CARBON DIOXIDE 36.8 MMOL/L (24-32); TOTAL PROTEIN 6.1 G/DL (6.4-8.2); eGFR 57 ML/MIN
[2020-04-02] MEDS: ipratropium/albuterol 3ml nebule NEB SCH ×3 (07:43→15:03)
[2020-04-02] MEDS: K, MAG and/or Phos replacement - Verify level? MC SCH (08:00)
[2020-04-02] MEDS: gabapentin 300mg capsule PO SCH (08:32)
[2020-04-02] MEDS: azithromycin 250mg tablet PO SCH (08:32)
[2020-04-02] MEDS: aspirin 81mg tablet.DR PO SCH (08:33)
[2020-04-02] MEDS: furosemide 40mg/4ml inj IV SCH (08:33)
[2020-04-02] MEDS: cefepime 1GM/NS 100 ML IVPB IV SCH (08:33)
[2020-04-02] MEDS: NYSTATIN CREAM - 30GM TUBE TP SCH (08:33)
[2020-04-02] MEDS: metoprolol tartrate 25mg tablet PO SCH (08:33)
[2020-04-02] MEDS: mesalamine 1000mg rectal suppository RC SCH (08:33)
[2020-04-02] MEDS: lactobacillus rhamnosus 10,000 MMU CELLS/CAPSULE PO SCH (08:38)
[2020-04-02 10:11] VITALS: BP 143/58
[2020-04-02] MEDS: insulin Lispro (HumaLOG) vial - multi-dose SQ SCH (12:52)
[2020-04-02] MEDS ORDERED: gabapentin 300mg capsule PO SCH (14:01)
--- NOTE | 2020-04-02 14:44 | NUR ---
[facility] report called to Cody . all valuables accounted for and discharge instructions reviewed with pt and placed in envelope provided by upper caser. pt and her daughter agreeable with discharge. pickling grader scheduled for 1600 today.
[2020-04-02 15:43] VITALS: BP 153/74
[2020-04-02] MEDS: HYDROcodone/acetaminophen 10/325mg tab PO PRN (15:51)
--- NOTE | 2020-04-02 16:36 | NUR ---
pt is discharged .all valuables accounted for
[2020-04-03] MEDS ORDERED: predniSONE 20 mg tablet PO SCH (08:00)
== END 2020-04-02 16:30 | DRG 242 ==
LOC: ER 12:52 → ED HOLD 14:29 → CICU 2S 19:10 → PCU 3S 03-30 16:00
PROVIDERS: ADMIT Surgery; ATTEND Surgery
PROC: 02HV33Z Insertion of Infusion Device into Superior Vena Cava, Percutaneous Approach (ICD-10-PCS; 2020-03-27)
PROC: B548ZZA Ultrasonography of Superior Vena Cava, Guidance (ICD-10-PCS; 2020-03-27)
PROC: 5A09357 Assistance with Respiratory Ventilation, Less than 24 Consecutive Hours, Continuous Positive Airway Pressure (ICD-10-PCS; principal; 2020-03-28)
PROC: 0JH606Z Insertion of Pacemaker, Dual Chamber into Chest Subcutaneous Tissue and Fascia, Open Approach (ICD-10-PCS; 2020-03-28)
PROC: 02H63JZ Insertion of Pacemaker Lead into Right Atrium, Percutaneous Approach (ICD-10-PCS; 2020-03-28)
PROC: 02HK3JZ Insertion of Pacemaker Lead into Right Ventricle, Percutaneous Approach (ICD-10-PCS; 2020-03-28)
DX: I44.2 Atrioventricular block, complete (principal); J96.92 Respiratory failure, unspecified with hypercapnia; N17.9 Acute kidney failure, unspecified; N39.0 Urinary tract infection, site not specified; J44.1 Chronic obstructive pulmonary disease with (acute) exacerbation; R44.3 Hallucinations, unspecified; I50.30 Unspecified diastolic (congestive) heart failure; E03.9 Hypothyroidism, unspecified; E11.9 Type 2 diabetes mellitus without complications; E78.5 Hyperlipidemia, unspecified; E87.5 Hyperkalemia; I05.0 Rheumatic mitral stenosis; I48.91 Unspecified atrial fibrillation; I65.23 Occlusion and stenosis of bilateral carotid arteries; M19.90 Unspecified osteoarthritis, unspecified site; S00.81XA Abrasion of other part of head, initial encounter; M54.30 Sciatica, unspecified side; W01.0XXA Fall on same level from slipping, tripping and stumbling without subsequent striking against object, initial encounter; I11.0 Hypertensive heart disease with heart failure; Z20.822 Contact with and (suspected) exposure to COVID-19; I95.9 Hypotension, unspecified; R00.1 Bradycardia, unspecified; I77.1 Stricture of artery; R29.6 Repeated falls; Z79.82 Long term (current) use of aspirin; Z85.850 Personal history of malignant neoplasm of thyroid; Z87.891 Personal history of nicotine dependence; Z79.84 Long term (current) use of oral hypoglycemic drugs; Z99.81 Dependence on supplemental oxygen; Y93.89 Activity, other specified; Y92.89 Other specified places as the place of occurrence of the external cause; Y99.8 Other external cause status; Z79.899 Other long term (current) drug therapy; Z79.890 Hormone replacement therapy
CPT/HCPCS: 33208; 36415; 36600; 70450; 71045; 80048; 80053; 81001; 82803; 82810; 82948; 83036; 83735; 83880; 84100; 84134; 84443; 84484; 85008; 85018; 85025; 87077; 87081; 87088; 87186; 87426; 93005; 93306; 93308; 94640; 94660; 94760; 97110; 97116; 97161; 97530; 99152; 99153; 99285; A4620; A6449; C1785; C1898; G0378; J0690; J0692; J1265; J1815; J1940; J2250; J2370; J2405; J2930; J3010; J3475; J7030; J7050; J7060; J7626

== ENCOUNTER 2020-05-17 15:41 | Inpatient (IN) | payer MEDICARE, BC ==
[~2020-05-17] VITALS: Ht 163.8 cm; Wt 115.0 kg
[~2020-05-17 15:41] MED LIST: ACET-1 PO; ASPI-611 PO; ATOR10TA70 PO; CARV6.2553 PO; FURO20TA4 PO; GABA600T13 PO; IPRA3AMP31 IH; LEVO112T5 PO; METF-950 PO; MONT10TA32 PO; OLME20TA23 PO; POTA10CA44 PO; ROW500R RC; UMEC1DIS IH
[2020-05-17] MEDS ORDERED: dexamethasone sod phosphate 10mg/ml inj IV STA (16:06)
[2020-05-17] MEDS ORDERED: furosemide 40mg/4ml inj IV ONE (16:10)
[2020-05-17 16:57] LABS: ABG BASE EXCESS 10.1 mmol/L (-2.0-2.0); ABG HCO3 39.5 mmol/L (22.0-26.0); ABG OXYGEN SATURATION 99.5 % (94-97); ABG PCO2 (T) 89.5 mmHg (32.0-45.0); ABG PO2 (T) 354.1 mmHg (75.0-100.0); FLOW 15 L/min; FMetHb 0.1 % (0.0-1.5); FO2Hb 98.4 % (94-97); TOTAL HEMOGLOBIN 9.9 G/dl (12.0-16.0)
[2020-05-17 16:58] LABS: BASOPHILS # (AUTO) 0.1 X10'3 (0-0.2); BASOPHILS % (AUTO) 0.5 % (0-1); EOSINOPHILS # (AUTO) 0.1 X10'3 (0-0.9); EOSINOPHILS % (AUTO) 0.8 % (0-6); HEMATOCRIT 28.9 % (35.0-45.0); HEMOGLOBIN 9.1 g/dl (12.0-16.0); LYMPHOCYTES # (AUTO) 0.5 X10'3 (1.1-4.8); LYMPHOCYTES % (AUTO) 4.9 % (21-51); MEAN CORPUSCULAR HEMOGLOBIN 28.4 PG (27.0-31.0); MEAN CORPUSCULAR HGB CONC 31.3 g/dL (33.0-36.5); MEAN CORPUSCULAR VOLUME 90.7 FL (78-98); MEAN PLATELET VOLUME 11.8 FL (7.4-10.4); MONOCYTES # (AUTO) 1.2 X10'3 (0-0.9); MONOCYTES % (AUTO) 11.1 % (2-12); NEUTROPHILS % (AUTO) 82.7 % (42-75); PLATELET COUNT 162 X10'3 (140-440); RED BLOOD COUNT 3.19 X10'6 (4.20-5.60); RED CELL DISTRIBUTION WIDTH 15.3 % (11.5-14.5); WHITE BLOOD COUNT 10.9 X10'3 (4.5-11.0)
[2020-05-17 17:21] LABS: ALANINE AMINOTRANSFERASE 24 U/L (12-78); ALBUMIN 2.9 G/DL (3.4-5.0); ALKALINE PHOSPHATASE 85 IU/L (46-116); ANION GAP 2 (8-16); ASPARTATE AMINO TRANSFERASE 11 U/L (10-37); BILIRUBIN,TOTAL 0.4 MG/DL (0.1-1.0); BLOOD UREA NITROGEN 34 MG/DL (7-18); BUN/CREATININE RATIO 21.5 (6.6-38.0); CALCIUM 8.4 MG/DL (8.5-10.1); CHLORIDE 89 MMOL/L (99-107); CREATININE 1.58 MG/DL (0.40-0.90); GLUCOSE 164 MG/DL (70-104); MAGNESIUM 1.6 MG/DL (1.5-2.4); POTASSIUM 5.7 MMOL/L (3.5-5.1); SODIUM 130 MMOL/L (135-145); TOTAL CARBON DIOXIDE 38.6 MMOL/L (24-32); TOTAL PROTEIN 5.9 G/DL (6.4-8.2); eGFR 31 ML/MIN
[2020-05-17 17:24] LABS: ANISOCYTOSIS 1+; LARGE PLATELETS FEW; PLATELET ESTIMATE NORMAL
--- NOTE | 2020-05-17 18:26 | NUR ---
YULIANA PAINTER UPDATED ON PT'S PRESSURE- INSTRUCTED TO SIT PT UP AND RE-EVAL
--- NOTE | 2020-05-17 18:30 | NUR ---
MADINA BRIDGES MADE AWARE OF PT'S MENTAL STATE- AT BEDSIDE TO EVAL
--- NOTE | 2020-05-17 18:32 | NUR ---
PER YULIANA PAINTER, PT IS FULL CODE STATUS
--- NOTE | 2020-05-17 18:32 | NUR ---
DR BUCK AT BEDSIDE TO REGINA
[2020-05-17] MEDS ORDERED: naloxone 0.4 mg/ml inj IV ONE (18:35)
--- NOTE | 2020-05-17 18:40 | NUR ---
RT AT BEDSIDE SETTING UP BIPAP
--- NOTE | 2020-05-17 18:58 | NUR ---
PER PT'S DAUGHTER, PT IS NO LONGER ON [facility]MIN [facility] BUT IS TAKING INSULIN (FACILITY HAS NOT INFOMRED HER OF [facility] TYPE).
--- NOTE | 2020-05-17 19:21 | NUR ---
UPDATED DR BUCK WITH PT'S BP OF 102/43
--- NOTE | 2020-05-17 19:24 | NUR ---
MD HEBER UPDATED ON CURRENT VITALS AND PT'S MENTATION STATUS. WILL MONITOR AND WAITING TO SEE WHAT UPDATED ABG IS- RT IS CURRENTLY IN THERE OBTAINING SAMPLE.
[2020-05-17 19:30] LABS: ABG BASE EXCESS 10.6 mmol/L (-2.0-2.0); ABG HCO3 38.8 mmol/L (22.0-26.0); ABG OXYGEN SATURATION 90.9 % (94-97); ABG PCO2 (T) 77.8 mmHg (32.0-45.0); ABG PO2 (T) 60.9 mmHg (75.0-100.0); ALLEN'S TEST POSITIVE; FCOHb 1.1 % (0.0-3.9); FO2Hb 89.9 % (94-97); RESPIRATORY RATE 18 b/min; TOTAL HEMOGLOBIN 9.4 G/dl (12.0-16.0)
--- NOTE | 2020-05-17 19:31 | NUR ---
HEBER UPDATED THAT ABG IS RESULTED
[2020-05-17 20:10] LABS: CLARITY,URINE SLIGHTLY CLOUDY (Clear); COLOR,URINE YELLOW (Yellow); GLUCOSE, URINE NEGATIVE (Neg); KETONES,URINE NEGATIVE (Neg); LEUKOCYTE ESTERASE ,URINE TRACE (Neg); NITRITES, URINE NEGATIVE (Neg); OCCULT BLOOD,URINE NEGATIVE (Neg); PROTEIN,URINE TRACE mg/dl (Neg); UROBILINOGEN,URINE 0.2 E.U/dL (0.2-1.0)
[2020-05-17 20:11] LABS: UA COLLECTION TYPE FOLEY CATH
--- NOTE | 2020-05-17 20:13 | NUR ---
UPDATED MD HEBER OF CURRENT BP. WILL CONT TO MONITOR.
[2020-05-17 20:19] LABS: BACTERIA,URINE NONE SEEN /HPF (Neg); MUCUS STRANDS FEW /LPF (Neg); RBC,URINE 0-2 /HPF (0-2); SQUAMOUS EPITHELIAL CELL,UR FEW /LPF (FEW); WBC,URINE 0-4 /HPF (0-4)
[2020-05-17 20:20] LABS: HYALINE CASTS 0-3 /LPF (NEGATIVE); RENAL CELLS, URINE FEW /HPF; TRANSITIONAL EPI CELLS,URINE FEW /HPF
[2020-05-17 21:02] LABS: ABG BASE EXCESS 9.3 mmol/L (-2.0-2.0); ABG HCO3 37.4 mmol/L (22.0-26.0); ABG OXYGEN SATURATION 95.8 % (94-97); ABG PCO2 (T) 74.4 mmHg (32.0-45.0); ABG PO2 (T) 84.7 mmHg (75.0-100.0); ALLEN'S TEST POSITIVE; FMetHb 0.3 % (0.0-1.5); FO2Hb 94.6 % (94-97); RESPIRATORY RATE 18 b/min
[2020-05-17] MEDS ORDERED: potassium Cl 40MEQ/1/2NS 520ml 520 ML IV PRN ×2 (21:25)
[2020-05-17] MEDS ORDERED: magnesium Cl slow-release 64mg tablet PO PRN (21:25)
[2020-05-17] MEDS ORDERED: magnesium 4gm in 100ml NS 100 ML IV PRN (21:25)
[2020-05-17] MEDS ORDERED: magnesium 2GM in 50ml NS 50 ML IV PRN (21:25)
[2020-05-17] MEDS ORDERED: potassium Cl 20 mEq SR tablet PO PRN ×2 (21:25)
--- NOTE | 2020-05-17 22:30 | NUR ---
Patient in room PCU 3027. I have received report from Lorena PABLO and had the opportunity to ask questions and assume patient care.
--- NOTE | 2020-05-17 22:50 | NUR ---
Patient arrived to the floor via gurney, with Lorena PABLO from ER. She is in stable condition, on Bi-pap at 40 Fio2. No belongings where brought with patient, IV saline locked in L. hand. Will cont.. to monitor per hospital policy.
[2020-05-17 23:00] VITALS: BP 135/42
[2020-05-18] VITALS (10 sets, daily range): BP systolic 103–128; BP diastolic 35–80
[2020-05-18 04:36] LABS: BASOPHILS % (AUTO) 0.1 % (0-1); EOSINOPHILS % (AUTO) 0.1 % (0-6); HEMATOCRIT 28.8 % (35.0-45.0); HEMOGLOBIN 9.3 g/dl (12.0-16.0); LYMPHOCYTES # (AUTO) 0.4 X10'3 (1.1-4.8); LYMPHOCYTES % (AUTO) 5.9 % (21-51); MEAN CORPUSCULAR HEMOGLOBIN 28.9 PG (27.0-31.0); MEAN CORPUSCULAR HGB CONC 32.4 g/dL (33.0-36.5); MEAN CORPUSCULAR VOLUME 89.4 FL (78-98); MEAN PLATELET VOLUME 11.2 FL (7.4-10.4); MONOCYTES # (AUTO) 0.5 X10'3 (0-0.9); MONOCYTES % (AUTO) 6.9 % (2-12); NEUTROPHILS # (AUTO) 6.2 X10'3 (1.8-7.7); PLATELET COUNT 145 X10'3 (140-440); RED BLOOD COUNT 3.22 X10'6 (4.20-5.60); RED CELL DISTRIBUTION WIDTH 15.7 % (11.5-14.5); WHITE BLOOD COUNT 7.1 X10'3 (4.5-11.0)
[2020-05-18 04:54] LABS: ALBUMIN 2.7 G/DL (3.4-5.0); BLOOD UREA NITROGEN 34 MG/DL (7-18); BUN/CREATININE RATIO 28.1 (6.6-38.0); CALCIUM 9.1 MG/DL (8.5-10.1); CREATININE 1.21 MG/DL (0.40-0.90); GLUCOSE 150 MG/DL (70-104); MAGNESIUM 1.7 MG/DL (1.5-2.4); POTASSIUM 5.4 MMOL/L (3.5-5.1); SODIUM 131 MMOL/L (135-145); TOTAL CARBON DIOXIDE 38.1 MMOL/L (24-32); eGFR 42 ML/MIN
[2020-05-18 04:56] LABS: ANION GAP 2 (8-16); CHLORIDE 91 MMOL/L (99-107)
[2020-05-18 05:16] LABS: ANISOCYTOSIS 1+; LARGE PLATELETS FEW; PLATELET ESTIMATE NORMAL
--- NOTE | 2020-05-18 06:25 | NUR ---
Problems reprioritized. Patient report given, questions answered & plan of care reviewed with Kumar PABLO.
[2020-05-18] MEDS: ipratropium/albuterol 3ml nebule IH SCH ×2 (07:42→19:44)
[2020-05-18] MEDS: heparin, porcine 5000 units/ml vial SQ SCH ×2 (07:55→20:32)
[2020-05-18] MEDS ORDERED: gabapentin 300mg capsule PO SCH (08:00)
[2020-05-18] MEDS: K and/or MAG REPLACEMENT MC SCH ×2 (08:00→19:50)
[2020-05-18] MEDS: docusate sod 100mg capsule PO SCH ×2 (09:54→19:51)
[2020-05-18] MEDS: furosemide 20 MG/2 ML vial IV SCH ×2 (09:54→19:51)
[2020-05-18] MEDS: levoTHYROXINE 112mcg tablet PO SCH (09:55)
[2020-05-18] MEDS: carvedilol 6.25mg tablet PO SCH ×2 (09:55→19:51)
--- NOTE | 2020-05-18 10:39 | NUR ---
Noted that at prior admit patient's A1c was 7.7% (04/21/20), DM education not warranted given well controlled for age. Will continue to follow. Addendum: 05/18/20 at [address] Amended: Links added.
--- NOTE | 2020-05-18 10:50 | NUR ---
RT AT PATIENTS BEDSIDE FOR 1100 BIPAP CHECK. PATIENT FOUND ON 6L NASAL CANNULA, SPO2 100%. TITRATED PATIENT TO 3L, PATIENTS SATURATIONS REMAINED AT 100%. PATIENT HAS NO COMPLAINTS OF SOB OR DISTRESS. RT WILL RETURN FOR 1500 BIPAP CHECK. Addendum: 05/18/20 at 1052 by Ophelia Davidson RT Amended: Links added.
--- NOTE | 2020-05-18 11:38 | NUR ---
MEREDITH ADAN 89F: Pt states not having bowel movement since this Wednesday (5 days). Pt requesting laxative. - Kumar PABLO ext [phone]
--- NOTE | 2020-05-18 13:34 | NUR ---
MEREDITH JOVEL: 3027B: Pt daughter at bedside confirms patient is type 2 diabetic and takes metformin at home. She's unsure of dose, but will check when she leaves. Recommend hyperglycemic protocol order. Kumar PABLO ext [phone]
[2020-05-18] MEDS: gabapentin 300mg capsule PO SCH (20:31)
[2020-05-18] MEDS: montelukast 10mg tablet PO SCH (20:32)
[2020-05-18] MEDS: atorvastatin 10mg tablet PO SCH (20:32)
--- NOTE | 2020-05-18 21:00 | NUR ---
called MD to notify of low BP. 94/39. He stated that he was not concerned of diastolic BP and if patient is arousable and extremities are warm, to just watch it. No bolus due to CHF. Patient feet warm and she aroused to take medications. Held Lasix and Coreg for low BP
[2020-05-19] VITALS (7 sets, daily range): BP systolic 101–171; BP diastolic 39–79
[2020-05-19] MEDS ORDERED: acetaminophen 325mg tablet PO PRN (04:50)
[2020-05-19] MEDS: acetaminophen 325mg tablet PO PRN ×2 (04:57→15:34)
--- NOTE | 2020-05-19 06:16 | NUR ---
Problems reprioritized. Patient report given, questions answered & plan of care reviewed with SAMY Heath.
[2020-05-19 06:34] LABS: ALBUMIN 2.8 G/DL (3.4-5.0); ANION GAP 0 (8-16); BLOOD UREA NITROGEN 32 MG/DL (7-18); BUN/CREATININE RATIO 37.2 (6.6-38.0); CALCIUM 9.6 MG/DL (8.5-10.1); CHLORIDE 91 MMOL/L (99-107); CREATININE 0.86 MG/DL (0.40-0.90); GLUCOSE 244 MG/DL (70-104); MAGNESIUM 1.9 MG/DL (1.5-2.4); POTASSIUM 5.5 MMOL/L (3.5-5.1); SODIUM 131 MMOL/L (135-145); TOTAL CARBON DIOXIDE 39.8 MMOL/L (24-32); eGFR 63 ML/MIN
[2020-05-19] MEDS: ipratropium/albuterol 3ml nebule IH SCH ×2 (07:06→19:45)
[2020-05-19 07:13] LABS: BASOPHILS % (AUTO) 0.4 % (0-1); EOSINOPHILS # (AUTO) 0.4 X10'3 (0-0.9); EOSINOPHILS % (AUTO) 3.9 % (0-6); HEMATOCRIT 30.2 % (35.0-45.0); HEMOGLOBIN 9.6 g/dl (12.0-16.0); LYMPHOCYTES # (AUTO) 0.9 X10'3 (1.1-4.8); LYMPHOCYTES % (AUTO) 8.7 % (21-51); MEAN CORPUSCULAR HEMOGLOBIN 28.7 PG (27.0-31.0); MEAN CORPUSCULAR HGB CONC 31.7 g/dL (33.0-36.5); MEAN CORPUSCULAR VOLUME 90.4 FL (78-98); MEAN PLATELET VOLUME 12.3 FL (7.4-10.4); MONOCYTES # (AUTO) 1.5 X10'3 (0-0.9); MONOCYTES % (AUTO) 14.1 % (2-12); NEUTROPHILS % (AUTO) 72.9 % (42-75); PLATELET COUNT 211 X10'3 (140-440); RED BLOOD COUNT 3.34 X10'6 (4.20-5.60); RED CELL DISTRIBUTION WIDTH 15.8 % (11.5-14.5)
--- NOTE | 2020-05-19 07:22 | NUR ---
MED HARPER 3029X: Pt is type 2 diabetic. Pt accucheck this AM 217. Recommend hyper/hypoglycemic protocol to be initiated to begin covering patient with insulin. Also, pt doesn't have an active aguilar order. Thanks- Kumar PABLO ext [phone]
[2020-05-19] MEDS: carvedilol 6.25mg tablet PO SCH ×2 (07:51→19:23)
[2020-05-19] MEDS: heparin, porcine 5000 units/ml vial SQ SCH ×2 (07:51→19:23)
[2020-05-19] MEDS: levoTHYROXINE 112mcg tablet PO SCH (07:51)
[2020-05-19] MEDS: furosemide 20 MG/2 ML vial IV SCH ×2 (07:51→19:22)
[2020-05-19] MEDS: gabapentin 300mg capsule PO SCH ×2 (07:51→19:22)
[2020-05-19] MEDS: docusate sod 100mg capsule PO SCH ×2 (07:52→19:23)
[2020-05-19 07:59] LABS: LARGE PLATELETS FEW; PLATELET ESTIMATE NORMAL; POLYCHROMASIA 1+
[2020-05-19 08:00] LABS: HYPOCHROMASIA 1+; STOMATOCYTES 1+
[2020-05-19] MEDS: K and/or MAG REPLACEMENT MC SCH ×2 (08:00→20:00)
--- NOTE | 2020-05-19 08:00 | NUR ---
Pt is alert to herself and place; however, disoriented to time and situation. BiPAP placed.
[2020-05-19] MEDS ORDERED: dextrose 50%-water 50ml dispensing syringe IV PRN ×2 (08:35)
[2020-05-19] MEDS ORDERED: insulin Lispro (HumaLOG) vial - multi-dose SQ SCH (08:35)
[2020-05-19] MEDS ORDERED: glucagon, human recombinant 1mg kit SUBCUT PRN (08:35)
[2020-05-19] MEDS ORDERED: MESSAGE TO PHARMACY PO ONE (08:35)
[2020-05-19] MEDS ORDERED: dextrose ORAL solution 15 GM/59 ML bottle PO PRN ×2 (08:35)
--- NOTE | 2020-05-19 18:12 | NUR ---
Patient in room PCU 3027. I have received report from Kumar PABLO and had the opportunity to ask questions and assume patient care.
--- NOTE | 2020-05-19 19:11 | NUR ---
Patient in room PCU 3027. I have received report from Kumar PABLO and had the opportunity to ask questions and assume patient care.
[2020-05-19] MEDS: montelukast 10mg tablet PO SCH (19:23)
[2020-05-19] MEDS: atorvastatin 10mg tablet PO SCH (19:23)
[2020-05-19] MEDS: insulin glargine (Lantus) pen - multi-dose SQ SCH (21:00)
--- NOTE | 2020-05-19 21:18 | NUR ---
Educated patient on insulin, patient refused med, is not eating.
[2020-05-20] VITALS (8 sets, daily range): BP systolic 102–153; BP diastolic 34–94
--- NOTE | 2020-05-20 06:36 | NUR ---
Problems reprioritized. Patient report given, questions answered & plan of care reviewed with Kumar PABLO.
--- NOTE | 2020-05-20 06:36 | NUR ---
Problems reprioritized. Patient report given, questions answered & plan of care reviewed with Kumar PABLO.
--- NOTE | 2020-05-20 06:36 | NUR ---
Orientee documentation: I have reviewed and agree with all medications, interventions, assessments performed and documented by Graciela PABLO.
[2020-05-20] MEDS: ipratropium/albuterol 3ml nebule IH SCH ×2 (07:06→19:58)
[2020-05-20 08:00] LABS: BASOPHILS % (AUTO) 0.2 % (0-1); EOSINOPHILS # (AUTO) 0.1 X10'3 (0-0.9); EOSINOPHILS % (AUTO) 0.8 % (0-6); HEMATOCRIT 31.4 % (35.0-45.0); LYMPHOCYTES # (AUTO) 0.5 X10'3 (1.1-4.8); LYMPHOCYTES % (AUTO) 5.1 % (21-51); MEAN CORPUSCULAR HEMOGLOBIN 28.6 PG (27.0-31.0); MEAN CORPUSCULAR HGB CONC 31.9 g/dL (33.0-36.5); MEAN CORPUSCULAR VOLUME 89.8 FL (78-98); MEAN PLATELET VOLUME 11.6 FL (7.4-10.4); MONOCYTES % (AUTO) 10.9 % (2-12); NEUTROPHILS # (AUTO) 7.9 X10'3 (1.8-7.7); PLATELET COUNT 198 X10'3 (140-440); RED CELL DISTRIBUTION WIDTH 15.8 % (11.5-14.5); WHITE BLOOD COUNT 9.5 X10'3 (4.5-11.0)
[2020-05-20] MEDS: K and/or MAG REPLACEMENT MC SCH ×2 (08:00→20:00)
[2020-05-20] MEDS: docusate sod 100mg capsule PO SCH ×2 (08:00→20:00)
[2020-05-20 08:22] LABS: ALBUMIN 2.9 G/DL (3.4-5.0); ANION GAP 3 (8-16); BLOOD UREA NITROGEN 31 MG/DL (7-18); BUN/CREATININE RATIO 40.3 (6.6-38.0); CALCIUM 9.8 MG/DL (8.5-10.1); CHLORIDE 92 MMOL/L (99-107); CREATININE 0.77 MG/DL (0.40-0.90); GLUCOSE 183 MG/DL (70-104); MAGNESIUM 1.8 MG/DL (1.5-2.4); POTASSIUM 5.8 MMOL/L (3.5-5.1); SODIUM 134 MMOL/L (135-145); TOTAL CARBON DIOXIDE 39.5 MMOL/L (24-32); eGFR 72 ML/MIN
[2020-05-20] MEDS: acetaminophen 325mg tablet PO PRN (09:22)
[2020-05-20] MEDS: furosemide 20 MG/2 ML vial IV SCH ×2 (09:22→20:42)
[2020-05-20] MEDS: levoTHYROXINE 112mcg tablet PO SCH (09:23)
[2020-05-20] MEDS: carvedilol 6.25mg tablet PO SCH ×2 (09:23→20:00)
[2020-05-20] MEDS: gabapentin 300mg capsule PO SCH ×2 (09:23→20:00)
[2020-05-20] MEDS: heparin, porcine 5000 units/ml vial SQ SCH ×2 (09:23→20:43)
--- NOTE | 2020-05-20 09:57 | NUR ---
MEREDITH JOVEL 3027B: Pt currently on BiPAP, O2 saturation 83-85%. RT was called, recommending ABG drawn. - Kumar PABLO ext [phone] Addendum: 05/20/20 at 0959 by Kumar MOMIN RN page to Dr. Storm #[phone]
--- NOTE | 2020-05-20 15:49 | NUR ---
MEREDITH JOVEL 3027B: Pt daughter here ready to discuss code status as well as discharge planning. - Kumar ext [phone]
--- NOTE | 2020-05-20 18:00 | NUR ---
Patient in room PCU 3027. I have received report from Kumar PABLO and had the opportunity to ask questions and assume patient care.
--- NOTE | 2020-05-20 18:39 | NUR ---
Patient in room PCU 3027. I have received report from Kumar PABLO and had the opportunity to ask questions and assume patient care. Got in report that patient stated to day shift RN, "just let me go" and made other statements that she is ready to . Patient's daughter Celia (DPOA for healthcare) was present and stated that she said goodbye to her mom and to please call if she passes in the night. Celia stated family members are on their way to the area from out of town to see patient. Daughter Celia voiced that she is ready to let patient go but that other siblings are not in agreement. There will be more discussion regarding possible change of code status from full to DNR.
--- NOTE | 2020-05-20 20:07 | NUR ---
Called Dr. Mcacnn to ask for Nystatin powder for redness and yeasty odor to beneath pannus skin folds. Dr. Mccann ok'd Nystatin powder.
[2020-05-20] MEDS: atorvastatin 10mg tablet PO SCH (20:24)
[2020-05-20] MEDS: montelukast 10mg tablet PO SCH (20:25)
--- NOTE | 2020-05-20 20:26 | NUR ---
Went in to have patient swallow water prior to pm po medications, patient unable to wake up enough to safely swallow. Will administer all other medications per patient consent from earlier in shift. Will notify MD Mccann that patient unable to swallow at this time.
[2020-05-20] MEDS: nystatin 15 GM powder TP SCH (20:44)
[2020-05-20] MEDS: insulin glargine (Lantus) pen - multi-dose SQ SCH (21:00)
[2020-05-21] VITALS: BP 134/87
[2020-05-21 02:00] VITALS: BP 123/53
[2020-05-21 04:00] VITALS: BP 133/65
--- NOTE | 2020-05-21 05:39 | NUR ---
Patient has taken off bipap and gown multiple times during shift.
[2020-05-21 06:00] VITALS: BP 141/61
--- NOTE | 2020-05-21 06:15 | NUR ---
Problems reprioritized. Patient report given, questions answered & plan of care reviewed with Kumar PABLO.
--- NOTE | 2020-05-21 06:16 | NUR ---
Orientee documentation: I have reviewed and agree with all medications, interventions, assessments performed and documented by Graciela PABLO.
--- NOTE | 2020-05-21 06:18 | NUR ---
Problems reprioritized. Patient report given, questions answered & plan of care reviewed with Kumar PABLO.
[2020-05-21 06:53] LABS: BASOPHILS % (AUTO) 0.1 % (0-1); EOSINOPHILS % (AUTO) 0.1 % (0-6); HEMATOCRIT 30.7 % (35.0-45.0); HEMOGLOBIN 9.7 g/dl (12.0-16.0); LYMPHOCYTES # (AUTO) 0.5 X10'3 (1.1-4.8); LYMPHOCYTES % (AUTO) 5.6 % (21-51); MEAN CORPUSCULAR HEMOGLOBIN 28.5 PG (27.0-31.0); MEAN CORPUSCULAR HGB CONC 31.7 g/dL (33.0-36.5); MEAN CORPUSCULAR VOLUME 90.2 FL (78-98); MEAN PLATELET VOLUME 11.3 FL (7.4-10.4); MONOCYTES % (AUTO) 12.8 % (2-12); NEUTROPHILS # (AUTO) 6.6 X10'3 (1.8-7.7); NEUTROPHILS % (AUTO) 81.4 % (42-75); PLATELET COUNT 201 X10'3 (140-440); RED BLOOD COUNT 3.41 X10'6 (4.20-5.60); RED CELL DISTRIBUTION WIDTH 15.6 % (11.5-14.5); WHITE BLOOD COUNT 8.1 X10'3 (4.5-11.0)
[2020-05-21] MEDS: ipratropium/albuterol 3ml nebule IH SCH (06:54)
--- NOTE | 2020-05-21 07:00 | NUR ---
MED HARPER: 6673V: Pt is not comfortable on BiPaP and has taken it off multiple times throughout the night into this morning. Daughter stated last night she would like to bring her home with comfort care. Please call- [place] ext [phone].
[2020-05-21 07:29] LABS: ALBUMIN 2.9 G/DL (3.4-5.0); ANION GAP 1 (8-16); BLOOD UREA NITROGEN 35 MG/DL (7-18); BUN/CREATININE RATIO 44.3 (6.6-38.0); CALCIUM 9.8 MG/DL (8.5-10.1); CHLORIDE 95 MMOL/L (99-107); CREATININE 0.79 MG/DL (0.40-0.90); GLUCOSE 158 MG/DL (70-104); MAGNESIUM 1.6 MG/DL (1.5-2.4); POTASSIUM 5.6 MMOL/L (3.5-5.1); SODIUM 138 MMOL/L (135-145); eGFR 70 ML/MIN
[2020-05-21 07:43] LABS: TOTAL CARBON DIOXIDE 41.6 MMOL/L (24-32)
[2020-05-21] MEDS: carvedilol 6.25mg tablet PO SCH (08:00)
[2020-05-21] MEDS: levoTHYROXINE 112mcg tablet PO SCH (08:00)
[2020-05-21] MEDS: nystatin 15 GM powder TP SCH ×2 (08:00→13:00)
[2020-05-21] MEDS: docusate sod 100mg capsule PO SCH (08:00)
[2020-05-21] MEDS: K and/or MAG REPLACEMENT MC SCH (08:00)
[2020-05-21] MEDS: gabapentin 300mg capsule PO SCH (08:00)
[2020-05-21] MEDS: heparin, porcine 5000 units/ml vial SQ SCH (08:00)
[2020-05-21] MEDS: furosemide 20 MG/2 ML vial IV SCH (08:07)
[2020-05-21] MEDS: acetaminophen 325mg tablet PO PRN (08:07)
[2020-05-21] MEDS ORDERED: acetaminophen 325mg tablet PO PRN (08:30)
[2020-05-21] MEDS: morphine 10mg/0.5ml (conc. morphine) oral syringe PO PRN ×4 (08:46→16:30)
[2020-05-21 09:31] LABS: LARGE PLATELETS FEW; PLATELET ESTIMATE NORMAL
[2020-05-21 09:32] LABS: HYPOCHROMASIA 1+; STOMATOCYTES 1+
[2020-05-21 11:00] VITALS: BP 135/81
[2020-05-21] MEDS ORDERED: MORP100S12 PO (11:16)
--- NOTE | 2020-05-21 14:01 | NUR ---
PAGER ID: [phone] MESSAGE: MANUEL ON [phone], I WILL PUT IN THE "DISCHARGE ROUTINE" ORDER IN FOR 3344U. THX
--- NOTE | 2020-05-21 16:17 | NUR ---
Pt on 5L NC O2 saturating 91-94%. Daughter at bedside. IV's removed, discharge paperwork and instructions given. Pt to be picked up by medical van [employer] to go home with hospice. Pt and daughter have no further questions at this time.
--- NOTE | 2020-05-21 19:10 | NUR ---
Patient discharged at 1800, daughter was at bedside. Patient's belongings with family.
[2020-05-21] MEDS ORDERED: docusate sod 100mg capsule PO SCH (20:00)
== END 2020-05-21 18:04 | disposition hospice, inpatient (51) | DRG 189 ==
LOC: ER 15:42 → ED HOLD 21:24 → PCU 3S 23:04
PROVIDERS: ADMIT Internal Medicine; ATTEND Internal Medicine
PROC: 5A09357 Assistance with Respiratory Ventilation, Less than 24 Consecutive Hours, Continuous Positive Airway Pressure (ICD-10-PCS; principal; 2020-05-17)
PROC: 5A09357 Assistance with Respiratory Ventilation, Less than 24 Consecutive Hours, Continuous Positive Airway Pressure (ICD-10-PCS; 2020-05-18)
PROC: 5A09357 Assistance with Respiratory Ventilation, Less than 24 Consecutive Hours, Continuous Positive Airway Pressure (ICD-10-PCS; 2020-05-19)
PROC: 5A09357 Assistance with Respiratory Ventilation, Less than 24 Consecutive Hours, Continuous Positive Airway Pressure (ICD-10-PCS; 2020-05-20)
PROC: 5A09357 Assistance with Respiratory Ventilation, Less than 24 Consecutive Hours, Continuous Positive Airway Pressure (ICD-10-PCS; 2020-05-21)
DX: J96.01 Acute respiratory failure with hypoxia (principal); I21.A1 Myocardial infarction type 2; G93.41 Metabolic encephalopathy; I50.33 Acute on chronic diastolic (congestive) heart failure; N17.0 Acute kidney failure with tubular necrosis; I13.0 Hypertensive heart and chronic kidney disease with heart failure and stage 1 through stage 4 chronic kidney disease, or unspecified chronic kidney disease; E87.1 Hypo-osmolality and hyponatremia; Z68.41 Body mass index [BMI] 40.0-44.9, adult; E87.6 Hypokalemia; E11.22 Type 2 diabetes mellitus with diabetic chronic kidney disease; E89.0 Postprocedural hypothyroidism; E78.5 Hyperlipidemia, unspecified; F17.210 Nicotine dependence, cigarettes, uncomplicated; E66.01 Morbid (severe) obesity due to excess calories; J44.9 Chronic obstructive pulmonary disease, unspecified; N18.30 Chronic kidney disease, stage 3 unspecified; Z95.0 Presence of cardiac pacemaker
CPT/HCPCS: 36415; 36600; 70450; 71045; 80048; 80053; 81001; 82803; 82948; 83605; 83735; 83880; 84145; 84484; 85008; 85018; 85025; 87040; 87081; 87088; 93005; 94640; 94660; 94760; 96365; 97110; 97161; 97530; 99285; G0378; J1100; J1644; J1815; J1940; J2310